=== PATIENT | male | born 1985 | race African-American/Black ===

== ENCOUNTER 2019-01-22 19:10 | Emergency (ER) | payer OTHER ==
[~2019-01-22] VITALS: Ht 190.5 cm; Wt 106.8 kg
[2019-01-22 19:10] VITALS: BP 126/85
--- NOTE | 2019-01-22 19:15 | ED.ADGEN ---
Adult General Chief Complaint Chief Complaint "..I just flew in here from [place]... For a course at the [employer]... 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 Patient now has a nonproductive dry cough and some wheezing. Patient up-to-date with vaccinations. Recent travel from [place]. Patient denies any specific ill contacts. Patient normally healthy. No history of Medical issues. Review of Systems Review of Systems Constitutional: History fever or chills [] Eyes: Denies change in visual acuity, redness, or eye pain [] HENT: History nasal congestion and sore throat [] Respiratory: History of a nonproductive cough Denies shortness of breath [] Cardiovascular: No additional information not addressed in HPI [] GI: Denies abdominal pain, nausea, vomiting, bloody stools or diarrhea [] : Denies dysuria or hematuria [] Musculoskeletal: Denies back pain or joint pain []Complaints of myalgia. Integument: Denies rash or skin lesions [] Neurologic: Denies headache, focal weakness or sensory changes [] Endocrine: Denies polyuria or polydipsia [] All other systems were reviewed and found to be within normal limits, except as documented in this note. Family History Family History Noncontributory Current Medications Current Medications Current Medications Medications (Trade) Dose Ordered Sig/Sima Start Time Stop Time Status Last Admin Dose Admin Albuterol Sulfate (Ventolin Hfa Inhaler) 2 puff 1X ONCE 01/22/19 20:45 01/22/19 20:46 DC 01/22/19 21:06 2 PUFF Ibuprofen (Motrin) 600 mg 1X ONCE 01/22/19 19:45 01/22/19 19:46 DC 01/22/19 19:50 600 MG Prednisone (Prednisone) 50 mg 1X ONCE 01/22/19 19:45 01/22/19 19:46 DC 01/22/19 19:50 50 MG Allergies Allergies Allergies Coded Allergies Type Severity Reaction Last Updated Verified No Known Drug Allergies 01/22/19 No Physical Exam Physical Exam Constitutional: Well developed, well nourished, moderate distress, non-toxic appearance. [] HENT: Normocephalic, atraumatic, bilateral external ears normal, oropharynx moist, mildly injected throat with post nasal drainage, no oral exudates, nose swollen turbinates and clear rhinorrhea Eyes: PERRLA, EOMI, conjunctiva normal, no discharge. [] Neck: Normal range of motion, no tenderness, supple, no stridor. [] Cardiovascular:Heart rate regular rhythm, no murmur [] Lungs & Thorax: Bilateral breath sounds equal apexes with only occasional wheeze auscultation [] Abdomen: Bowel sounds normal, soft, no tenderness, no masses, no pulsatile masses. [] Skin: Warm, dry, no erythema, no rash. [] Back: No tenderness, no CVA tenderness. [] Extremities: No tenderness, no cyanosis, no clubbing, ROM intact, no edema. [] Complaints of generalize mild myalgia. Neurologic: Alert and oriented X 3, normal motor function, normal sensory function, no focal deficits noted. [] Psychologic: Affect anxious, judgement normal, mood normal. [] Current Patient Data Vital Signs Vital Signs Date Time Temp Pulse Resp B/P (MAP) Pulse Ox O2 Delivery O2 Flow Rate FiO2 01/22/19 19:10 100.6 98 16 99 Room Air Lab Results Laboratory Tests Test 01/22/19 19:20 Influenza Type A (Rapid) Negative (NEGATIVE) Influenza Type B (Rapid) Negative (NEGATIVE) Group A Streptococcus Rapid Negative (NEGATIVE) EKG EKG [] Radiology/Procedures Radiology/Procedures [] Course & Med Decision Making Course & Med Decision Making Pertinent Labs and Imaging studies reviewed. (See chart for details) Patient continue push fluids. Take Tylenol and ibuprofen for discomfort and fever. May take Benadryl 25-50 mg up 4 times a day. Gargle frequently with Listerine or salt water. Follow-up primary care. Return if any concerns. [] Final Impression Final Impression 1. Viral syndrome[] Dragon Disclaimer Dragon Disclaimer This electronic medical record was generated, in whole or in part, using a voice recognition dictation system. RYAN HONEYCUTT MD Jan 22, 2019 19:15
[2019-01-22] MEDS ORDERED: IBUPROFEN 600 MG TABLET. PO ONE (19:45)
[2019-01-22] MEDS ORDERED: predniSONE 10 MG TABLET PO ONE (19:45)
[2019-01-22 20:03] LABS: INFLUENZA A PATIENT NEGATIVE (NEGATIVE); INFLUENZA B PATIENT NEGATIVE (NEGATIVE)
[2019-01-22] MEDS ORDERED: IBUP800T19 PO (20:30)
[2019-01-22] MEDS ORDERED: DIPH25CA58 PO (20:30)
[2019-01-22] MEDS ORDERED: ACET500T68 PO (20:30)
[2019-01-22] MEDS ORDERED: ALBUTEROL SULFATE 8GM INHALER. INH ONE (20:45)
== END 2019-01-22 21:07 | disposition home or self-care (01) ==
LOC: ER 19:10
DX: B34.9 Viral infection, unspecified (principal)
CPT/HCPCS: 87070; 87804; 87880; 94640; 99284; J7512; J7613